=== PATIENT | male | born 1985 | race Caucasian/White ===

== ENCOUNTER 2021-04-11 14:01 | Emergency (ER) | payer OTHER, BC ==
[2021-04-11 14:24] VITALS: BP 133/83; PULSE 104; TEMP 98.6; BMI 38.0
[2021-04-11] MEDS ORDERED: METHOCARBAMOL 500 MG TABLET PO ONE (15:08)
[2021-04-11] MEDS ORDERED: KETOROLAC TROMETHAMINE 30 MG/1 ML VIAL IM ONE (15:08)
[2021-04-11] MEDS ORDERED: METHOCARBAMOL 500 MG TABLET ONE (15:16)
[2021-04-11] MEDS ORDERED: KETOROLAC TROMETHAMINE 30 MG/1 ML VIAL ONE (15:17)
== END 2021-04-11 16:11 | disposition home or self-care (01) ==
LOC: JER 14:01 → JERFT 14:01
PROC: 3E0233Z Introduction of Anti-inflammatory into Muscle, Percutaneous Approach (ICD-10-PCS; principal; 2021-04-11)
DX: M54.5 Low back pain (principal); V43.12XA Car passenger injured in collision with other type car in nontraffic accident, initial encounter
CPT/HCPCS: 99284-25